=== PATIENT | female | born 1960 | race Caucasian/White ===

== ENCOUNTER → 2017-04-30 | Outpatient (CLI) | payer BC ==
[2014-02-07 14:52] VITALS: BMI 30.3
[~2017-04-30] MED LIST: ACE3 PO; ASPI-1471 PO; BIRTH CONTROL PILL; CALC-515 PO; DOCU-442 PO; ESTR1PAT4 TD; FERR325C2 PO; FLU20 PO; HYDR-2966 PO; HYDR-4309 PO; IBU800 PO; IBUP-56 PO; Ibuprofen PO; LACT1CAP9 PO; LANS30CA70 PO; LEV112 PO; LEVO150T78 PO; LEVO25TA56 PO; LOR5/325 PO; MULT1TAB64 PO; PER PO; WARF3TAB14 PO; [UNRECOGNIZED DRUG - CODE] TD
--- NOTE | 2017-04-30 15:33 | RADIOLOGY IMAGING REPORT ---
FACILITY: [facility] [place] PATIENT NAME: ADELE GUTIERREZ : [id number] MR: [id number] V: [id number] EXAM DATE: ORDERING PHYSICIAN: ANG KLEIN TECHNOLOGIST: Mabel Rayo PROCEDURE:BILATERAL DIGITAL SCREENING MAMMOGRAM WITH CAD ASSISTED INTERPRETATION & 3D TOMOSYNTHESIS COMPARISON:Prior mammograms 08/29/13, 08/30/12 INDICATIONS:screening FINDINGS: Moderately heterogeneous fibroglandular tissue is seen throughout the breasts. The parenchymal pattern has remained stable allowing for difference in mammographic technique & patient positioning. There is no evidence of malignant appearing mass, malignant appearing calcifications or other secondary sign of malignancy in either breast. DIAGNOSTIC CATEGORY 1--NEGATIVE. RECOMMENDATIONS: ROUTINE MAMMOGRAM AND CLINICAL EVALUATION. IMPRESSION: BIRADS 1: Negative No significant abnormality is seen. Dictated by: Roxanna Kaur M.D. on 04/30/2017 at 15:23 Transcribed by: CHRISTINA on 04/30/2017 at 15:28 Approved by: Roxanna Kaur M.D. on 04/30/2017 at 15:32 [facility]
== END ==
LOC: MAMO 02-26 03:47
PROVIDERS: ATTEND Family Medicine
DX: Z12.31 Encounter for screening mammogram for malignant neoplasm of breast (principal)
CPT/HCPCS: 77063; 77067